=== PATIENT | female | born 1995 | race Caucasian/White ===

== ENCOUNTER → 2017-04-19 | Outpatient (REF) | LOC: WSOH 13:55 | DX: Z02.89 Encounter for other administrative examinations (principal) ==

== ENCOUNTER → 2017-04-21 | Outpatient (REF) | LOC: WSOH 15:44 | DX: Z01.84 Encounter for antibody response examination (principal) ==

== ENCOUNTER → 2017-04-21 | Outpatient (REF) | LOC: WSOH 15:15 | DX: Z02.89 Encounter for other administrative examinations (principal) ==

== ENCOUNTER → 2017-04-26 | Outpatient (REF) | LOC: WSOH 14:12 | DX: Z11.1 Encounter for screening for respiratory tuberculosis (principal) ==

== ENCOUNTER → 2017-05-05 | Outpatient (REF) | LOC: WSOH 11:15 | DX: Z11.1 Encounter for screening for respiratory tuberculosis (principal) ==

== ENCOUNTER → 2017-06-01 | Outpatient (REF) | LOC: WSOH 11:45 | DX: Z02.89 Encounter for other administrative examinations (principal) ==

== ENCOUNTER 2023-10-09 19:29 | Outpatient (CLI) | payer BC ==
[~2023-10-09] VITALS: Ht 170.2 cm; Wt 95.0 kg
[~2023-10-09 19:29] MED LIST: CEPHALEXIN500 M1 PO; PRENATAL TABLET PO
--- NOTE | 2023-10-09 19:30 | NUR ---
Ambulatory to unit for labor assessment, accompanied by spouse. Pt reports contractions " for a month. Now the ctx are more regular and they are meeting the 5-1-1 rule the OB office told me. Pt denies LOF or vaginal bleeding. Oriented to room, monitor, plan of care. SVE Amniotrace neg FT- no free fluid or vaginal bleeding noted.
[2023-10-09 19:50] VITALS: BP 129/83; PULSE 101; TEMP 98
[2023-10-09 20:00] VITALS: BP 118/67; PULSE 82
--- NOTE | 2023-10-09 20:50 | NUR ---
Pt relaxed social, aware of ctx, watching monitor. Reports pain a 4 on 1-10 scale.
[2023-10-09 21:10] VITALS: BP 128/74
--- NOTE | 2023-10-09 21:25 | NUR ---
Discharge instructions reviewed with pt and spouse. Questions invited and answerred. Ambulatory off unit.
== END 2023-10-09 21:25 | disposition home or self-care (01) ==
LOC: LDRO 19:29
DX: O26.893 Other specified pregnancy related conditions, third trimester (principal); E75.5 Other lipid storage disorders; Z3A.37 37 weeks gestation of pregnancy

== ENCOUNTER 2023-10-12 16:51 | Inpatient (IN) | payer BC ==
[~2023-10-12] VITALS: Ht 167.6 cm; Wt 95.0 kg
[2023-10-16] VITALS (62 sets, daily range): BP systolic 103–152; BP diastolic 53–91; PULSE 57–114; TEMP 97.2–98.6
--- NOTE | 2023-10-16 06:50 | NUR ---
PT AMBULATORY TO UNIT WITH SPOUSE, CHANGED INTO PERSONAL GOWN, REPORTS INFREQUENT CTX, NO LOF, POSITIVE MOVEMENT.
[2023-10-16] MEDS ORDERED: LR 1,000 ML IV SCH (07:00)
[2023-10-16] MEDS ORDERED: LR & Oxytocin 500 ML IV SCH (07:00)
--- NOTE | 2023-10-16 07:14 | NUR ---
DR. PUGA AT BEDSIDE FOR SVE AND AROM. SVE AT THIS TIME /-2. AROM SMALL AMOUNT OF CLEAR FLUID. PT TOLERATED WELL.
[2023-10-16 07:29] LABS: BASO % 0.2 % (0.0-2.0); EOS % 0.3 % (0.0-4.0); GRAN % 72.9 % (42.2-75.2); HEMOGLOBIN 12.3 g/dl (12.5-16.0); LYMPH # 2.3 K/mm3 (1.2-3.4); LYMPH % 18.9 % (20.0-51.0); MEAN CELL VOLUME 93 fl (80.0-100.0); MEAN CORPUSCULAR HEMOGLOBIN 33 pg (27-31); MEAN CORPUSCULAR HGB CONC 35 g/dl (33.0-37.0); MEAN PLATELET VOLUME 11.8 fl (7.4-10.4); MONO # 0.9 K/mm3 (0.1-0.6); MONO % 6.9 % (1.7-9.3); PLATELET COUNT 170 K/mm3 (130-400); RED BLOOD COUNT 3.74 M/mm3 (4.10-5.30); REDCELL DISTRIBUTION WIDTH-CV 11.9 % (11.5-14.5)
[2023-10-16 07:38] LABS: HEMATOCRIT 34.9 % (37.0-47.0)
[2023-10-16 07:46] LABS: ALBUMIN 2.8 gm/dL (3.5-5.0); BILIRUBIN,TOTAL 0.4 mg/dL (0.2-1.2); CALCIUM 8.8 mg/dL (8.4-10.2); CREATININE, serum 0.8 mg/dL (0.57-1.11); POTASSIUM 3.9 mmol/L (3.5-4.5); TOTAL PROTEIN 6.3 gm/dL (6.2-8.1)
--- NOTE | 2023-10-16 08:50 | NUR ---
PT SITTING UPRIGHT ON BED, PULSE OX IN PLACE, LR BOLUS INFUSING PER PROTOCOL. EFM CAT 1. VS STABLE.
--- NOTE | 2023-10-16 08:54 | NUR ---
MEREDITH ATWOOD AT BEDSIDE FOR EPIDURAL PLACEMENT. 0857 SS ADMINISTERED PER EMPLOYEE COUNSELOR. PT TOLERATED WELL. 0859 TEST DOSE ADMINISTERED PER EMPLOYEE COUNSELOR. PT TOLERATED WELL. VS STABLE, EFM CAT 1, TOLERATED WELL. RETURNED TO BED. COMFORTABLE
[2023-10-16] MEDS ORDERED: ROPivacaine PF 0.2% 200 ML IV ONE (09:04)
[2023-10-16] MEDS ORDERED: Ondansetron 4 MG/2 ML VIAL IV PRN (10:15)
[2023-10-16] MEDS ORDERED: diphenhydrAMINE 50 MG/ML 1 ML VIAL IV PRN (10:15)
[2023-10-16] MEDS ORDERED: Naloxone 0.4 MG/ML VIAL IV PRN ×2 (10:15→21:30)
[2023-10-16] MEDS ORDERED: ePHEDrine 50 MG/10 ML VIAL IV PRN (10:15)
[2023-10-16] MEDS ORDERED: diphenhydrAMINE 25 MG CAP PO PRN (10:15)
--- NOTE | 2023-10-16 12:38 | NUR ---
DR. PUGA AT BEDSIDE FOR SVE /-2. IUPC PLACED AT THIS TIME. PT TOLERATED WELL. EFM CATEGORY 1.
--- NOTE | 2023-10-16 17:40 | NUR ---
[id number] THIS RN AT BEDSIDE FOR SIDE LYING HIP RELEASE. PT TOLERATED WELL. EFM CAT 1. VS STABLE.
--- NOTE | 2023-10-16 19:30 | NUR ---
1930 DR PUGA HERE. SVE 2. INSTRUCTED TO PUSH WITH CONTRACTIONS.
--- NOTE | 2023-10-16 20:40 | NUR ---
2039 DR PUGA IN ROOM. READIED FOR DELIVERY 2043 DEL VIABLE MALE OVER 1ST DEGREE LAC WITH 9//9 APGARS. IV CONTS TO INFUSE.
[2023-10-16] MEDS ORDERED: traZODone 50 MG TAB PO PRN (21:00)
[2023-10-16] MEDS ORDERED: Mag/Al Hydrox/Simeth Susp 30 ML CUP PO PRN (21:30)
[2023-10-16] MEDS ORDERED: Measles/Mumps/Rubella Virus Vaccine Live w Diluent 0.5 ML VIAL SQ SCH (21:30)
[2023-10-16] MEDS ORDERED: oxyCODONE 5 MG TAB PO PRN (21:30)
[2023-10-16] MEDS ORDERED: Loratadine 10 MG TAB PO PRN (21:30)
[2023-10-16] MEDS ORDERED: Witch Hazel 50% Pads Bulk TUB TP PRN (21:30)
[2023-10-16] MEDS ORDERED: Phenylephrine/Mineral Oil/Petrolatum 57 GM TUBE RC PRN (21:30)
[2023-10-16] MEDS ORDERED: Acetaminophen 500 MG TAB PO PRN (21:30)
[2023-10-16] MEDS ORDERED: Ibuprofen 800 MG TAB PO SCH (21:30)
[2023-10-16] MEDS ORDERED: Magnes Hydrox (MOM) 80 MG/ML 30 ML CUP PO PRN (21:30)
[2023-10-16] MEDS ORDERED: MOTRIN 800800 MG/TAB PO (22:02)
--- NOTE | 2023-10-16 22:50 | NUR ---
2250 IV TO INT. EPID CATH REMOVED. UP TO BR PER ZAIN RAMÍREZ. VOIDED 900CC. PERICARE DONE. TO NSY PER ZAIN RAMÍREZ TO WATCH BABY BATH. JOSE MANUEL WELL
--- NOTE | 2023-10-16 23:30 | NUR ---
2330 AMB FROM NSY TO 208 WITH ASSIST AND JOSE MANUEL WELL. ORIENTED TO ROOM.
[2023-10-17 01:00] VITALS: BP 111/60; PULSE 89; TEMP 98.6
[2023-10-17 05:00] VITALS: BP 107/65; PULSE 76; TEMP 98.2
[2023-10-17 07:10] VITALS: BP 120/71; PULSE 79; TEMP 98.2
[2023-10-17] MEDS ORDERED: Sennosides/Docusate 8.6-50 MG TAB PO SCH (08:00)
[2023-10-17] MEDS ORDERED: Influenza Virus Vaccine, Quad '23-24 (6 MOS+) 0.5 ML SYRINGE IM SCH (09:00)
[2023-10-17 16:20] VITALS: BP 131/79; PULSE 82; TEMP 98
[2023-10-17 18:55] VITALS: BP 126/80; PULSE 80; TEMP 98
[2023-10-18 06:43] VITALS: BP 115/71; PULSE 85; TEMP 98
--- NOTE | 2023-10-18 09:10 | NUR ---
Initial visit; Parents thanked Toppiece Cutter for offering congratulations and God's blessings for the of their son. Toppiece Cutter thanked family for choosing [facility] and let them know if they decide they would like to have their son 'Blessed' to let their nurse contact Toppiece Cutter.
== END 2023-10-18 14:44 | disposition home or self-care (01) | DRG 807 ==
LOC: OB → LDR 10-16 06:38 → OB 10-16 10:23
PROVIDERS: ADMIT Obstetrics & Gynecology
PROC: 10E0XZZ Delivery of Products of Conception, External Approach (ICD-10-PCS; principal; 2023-10-16)
PROC: 0HQ9XZZ Repair Perineum Skin, External Approach (ICD-10-PCS; 2023-10-16)
PROC: 10907ZC Drainage of Amniotic Fluid, Therapeutic from Products of Conception, Via Natural or Artificial Opening (ICD-10-PCS; 2023-10-16)
PROC: 3E033VJ Introduction of Other Hormone into Peripheral Vein, Percutaneous Approach (ICD-10-PCS; 2023-10-16)
DX: O13.4 Gestational [pregnancy-induced] hypertension without significant proteinuria, complicating childbirth (principal); Z37.0 Single live birth; O70.0 First degree perineal laceration during delivery; O99.52 Diseases of the respiratory system complicating childbirth; J45.909 Unspecified asthma, uncomplicated; O36.63X0 Maternal care for excessive fetal growth, third trimester, not applicable or unspecified; O69.1XX0 Labor and delivery complicated by cord around neck, with compression, not applicable or unspecified; Z3A.38 38 weeks gestation of pregnancy; Z86.16 Personal history of COVID-19
CPT/HCPCS: J2405; J2590; J2795; J7120